=== PATIENT | female | born 1995 ===

== ENCOUNTER → 2019-01-06 | Outpatient (CLI) | payer OTHER ==
--- NOTE | 2019-01-06 13:36 | RADIOLOGY IMAGING REPORT ---
[place] [facility] [place] NAME: Mirta Acveedo : 1995 MR: [id number] V: [id number] EXAM DATE: ORDERING PHYSICIAN: ANNA CROW TECHNOLOGIST: [place] [facility] [place] Mirta Acevedo : 1995 Visit/Account:[id number] Date of Sevice: 01/06/2019 CT SHOULDER W/O RT COMPARISON: None. HISTORY: Right shoulder pain after a tree fell onto the right shoulder December 23. TECHNIQUE: Noncontrast axial CT of the right shoulder with coronal and sagittal reformats. One of the following dose optimization techniques was utilized in the performance of this exam: auto mated exposure control; adjustment of the mA and/or kV according to patient size; or use of iterative reconstruction technique. Specific details can be referenced in the facility's radiology CT exam op erational policy. CONTRAST: None. FINDINGS: BONES : No acute appearing fractures. No significant arthropathy or degenerative changes. No signi ficant bone lesions. Glenohumeral and AC joints. The scapula and visualized right ribs are intact. T ype II acromion. There is no os acromiale. FLUID: No appreciable effusion or drainable fluid collection. SOFT TISSUES: Unremarkable. No focal muscle atrophy or appreciable muscle edema. OTHER: Visualized right lung is unremarkable. No pneumothorax or contusion at the imaged levels.. IMPRESSION: Normal noncontrast CT of the right shoulder. No acute fracture or subluxation. No cause for pain iden tified. Report Dictated By: Zana Esposito at 01/06/2019 1:25 PM Report E-Signed By: Zana Esposito at 01/06/2019 1:29 PM WSN:[id number]
== END ==
LOC: CT 11:55
PROVIDERS: ATTEND Orthopaedic Surgery Hand Surgery
DX: M25.511 Pain in right shoulder (principal)